=== PATIENT | female | born 1940 | race American Indian/Alaskan Native ===

== ENCOUNTER 2017-02-05 11:09 | Outpatient (CLI) | payer MEDICARE ==
--- NOTE | 2017-02-05 12:31 | Cat Scan Report ---
CT ABDOMEN AND PELVIS WITHOUT CONTRAST INDICATION: Hydronephrosis, pancreatic ultrasound abnormality. COMPARISON: 02/02/2017 MRI appearance. FINDINGS: Noncontrast abdomen and pelvis CT performed. LUNG BASES: Slight right basilar atelectasis posteriorly. Nonspecific distal esophageal wall thickening, not excluded for gastroesophageal reflux and/or hiatal hernia, amongst others. ABDOMEN: Please note that sensitivity to detect small visceral lesions is limited due to the absence of intravenous or oral contrast. However, subtle right diaphragmatic thickening/increased soft tissue suspected on axial series 2, images 21-48, amongst others, asymmetrically greater than the left. Tiny left hepatic calcification superiorly, axial image 37. Otherwise grossly unremarkable unenhanced liver, spleen, gallbladder, adrenals, nonaneurysmal abdominal aorta and IVC. Grossly normal pancreatic contours, though with approximately 1.2 cm somewhat exophytic hypodensity inferiorly measuring 21 HU, axial image 98, series 2. No radiopaque renal calculi, though mild right hydroureteronephrosis again noted, extending inferiorly into the pelvis. Approximately 2.3 cm right lower renal simple cyst also again seen. Unremarkable left kidney. No significant free-flowing ascites or size significant adenopathy. However, subtle fat stranding inferior to the pancreas may be present. Abnormal mesenteric stranding/density also noted in the left hemiabdomen with the largest confluent area measuring 6.4 x 3.3 cm, axial image 163, series 2, amongst others. Its extension upto the left colon also noted at places as also somewhat nodular appearance at others. Nonopacified GI tract evaluation limited. Ingested fluid/debris mildly distends the stomach. Duodenum though also distended with fluid with caliber up to 2.9 cm. Remainder small bowel though decompressed. Normal appendix. Redundant transverse colon with mild to moderate colonic stool/possible constipation. PELVIS: Approximately 3 x 1.5 cm abnormal lower abdominal/upper pelvic mesenteric soft tissue density also seen, axial image 222, series 2, amongst others. Nonobstructive pelvic small bowel loops noted. Rectosigmoid stool. Few pelvic phleboliths. Grossly unremarkable uterus and urinary bladder. Right distal ureter also dilated, though difficult to accurately follow entirely to the bladder base. No free fluid or definite significant adenopathy. Demineralized bones with multilevel spinal degenerative changes, including mild levoscoliosis apex at about L3 and more advanced mid to lower lumbar degenerative changes, including severe L4-L5 disc narrowing while moderate to severe L3-L4 and L5-S1 disc narrowing with some vacuum phenomenon noted. CONCLUSION: 1. Abnormal mesenteric densities suspicious for metastatic disease/caking, primary underlying neoplasm not known at this time. Lymphoma also remains in the differential considerations. 2. Mild hydroureteronephrosis on the right. 3. Fluid filled mildly distended stomach and duodenum. 4. Various other findings, including distal esophageal thickening, pancreatic CT appearance, hysterectomy and multilevel spinal degenerative changes, amongst others, as described. Please also correlate clinically and further with pancreatic mass protocol CT utilizing IV contrast, as appropriate. Correlation with stated abnormal pancreatic ultrasound images or its report would also be helpful, if available. Thank you for the opportunity to participate in this patient's care.
== END 2017-02-05 11:10 | disposition home or self-care (01) ==
LOC: CT 11:09
PROVIDERS: ATTEND Internal Medicine
DX: N13.2 Hydronephrosis with renal and ureteral calculous obstruction (principal); N28.1 Cyst of kidney, acquired; J98.11 Atelectasis; K76.89 Other specified diseases of liver; I87.8 Other specified disorders of veins; N28.82 Megaloureter; M41.86 Other forms of scoliosis, lumbar region; K31.89 Other diseases of stomach and duodenum; R93.5 Abnormal findings on diagnostic imaging of other abdominal regions, including retroperitoneum; Z90.710 Acquired absence of both cervix and uterus
CPT/HCPCS: 74176

== ENCOUNTER 2017-02-22 07:55 | Day surgery (SDC) | payer MEDICARE ==
[2017-02-22 08:37] LABS: Basophils % (Auto) 0.6 % (0.0-1.8); Eosinophils % (Auto) 0.6 % (0.0-4.3); Hematocrit 36.4 % (30.3-42.9); Mean Corpuscular HGB Conc 33 % (30-34); Mean Corpuscular Hemoglobin 30 pg (28-32); Mean Corpuscular Volume 92 fl (79-97); Platelet Count 163 K/mm3 (140-440); Red Blood Count 3.97 M/mm3 (3.65-5.03); Red Cell Distribution Width 12.5 % (13.2-15.2); White Blood Count 4.8 K/mm3 (4.5-11.0)
[2017-02-22 08:50] LABS: INR 1.04 (0.87-1.13); Partial Thromboplastin Time 26.3 Sec. (24.2-36.6)
[2017-02-22] MEDS ORDERED: VERSED IV ONE ×2 (09:17→09:28)
[2017-02-22] MEDS ORDERED: BENADRYL ONE (09:18)
[2017-02-22] MEDS ORDERED: BENADRYL IV ONE (09:28)
--- NOTE | 2017-02-22 11:07 | Cat Scan Report ---
CT BIOPSY OF ABDOMINAL/RETROPERITONEAL MASS HISTORY: Malignant neoplasm of peritoneum. DESCRIPTION OF PROCEDURE: Informed consent was obtained. Sterile technique was utilized. 1% lidocaine for skin anesthesia. Conscious sedation was accomplished with Versed and Benadryl. The patient was sedated for 25 minutes. Independent cardiorespiratory monitoring by RN. Using CT guidance, a 17-gauge introducer needle was in advanced to the leading edge of ill-defined soft tissue density in the left abdominal mesentery. Three 18-gauge core biopsies were obtained for pathology. The pathologist deemed the samples adequate. Followup scan demonstrates no evidence for hemorrhage. The patient tolerated the procedure without difficulty. IMPRESSION: Successful CT-guided biopsy of the left mesenteric mass/nodularity.
[2017-02-22 12:20] VITALS: BP 145/60
== END 2017-02-22 12:32 | disposition home or self-care (01) ==
LOC: OPU 07:55
PROVIDERS: ATTEND Internal Medicine Hematology & Oncology
DX: C48.2 Malignant neoplasm of peritoneum, unspecified (principal); Z79.01 Long term (current) use of anticoagulants
CPT/HCPCS: 36415; 49180; 77012; 85025; 85610; 85730; 88305; 88342; J1200; J2250; 88333; 88341